=== PATIENT | male | born 1980 | race Asian ===

== ENCOUNTER 2017-02-08 16:20 | Emergency (ER) | payer OTHER ==
[~2017-02-08] VITALS: Ht 170.2 cm; Wt 73.9 kg
[2017-02-08 16:30] VITALS: BP 133/78
--- NOTE | 2017-02-08 17:25 | PHYS DOC ---
Past Medical History Past Medical History: Bipolar, Depression, Other Additional Past Medical Histor: chronic hip and knee pain, SEASONAL ALLERGIES Past Surgical History: Other Additional Past Surgical Histo: RIGHT HIP SURGERY Alcohol Use: Occasionally Drug Use: None Adult General Chief Complaint Chief Complaint: HEADACHE HPI HPI Patient is a 36 year old male with history of bipolar who presents today with 5 /10 right frontal throbbing headache that began 4 days ago after he fell off a chair he was standing on to fix blinds and hit his right forehead on a table. Patient denies any loss of consciousness. He states he is currently sensitive to light and feels tired. Patient denies any nausea vomiting. Review of Systems Review of Systems Constitutional: Denies fever or chills [] Eyes: Denies change in visual acuity, redness, or eye pain [] HENT: Denies nasal congestion or sore throat [] Respiratory: Denies cough or shortness of breath [] Cardiovascular: No additional information not addressed in HPI [] GI: Denies abdominal pain, nausea, vomiting, bloody stools or diarrhea [] : Denies dysuria or hematuria [] Musculoskeletal: Denies back pain or joint pain [] Integument: Denies rash or skin lesions [] Neurologic: Right forehead headache Endocrine: Denies polyuria or polydipsia [] Allergies Allergies Allergies Coded Allergies Type Severity Reaction Last Updated Verified No Known Drug Allergies 08/18/15 No Physical Exam Physical Exam Constitutional: Well developed, well nourished, no acute distress, non-toxic appearance. [] HENT: Normocephalic, atraumatic, bilateral external ears normal, oropharynx moist, no oral exudates, nose normal. [] Eyes: PERRLA, EOMI, conjunctiva normal, no discharge. [] Neck: Normal range of motion, no tenderness, supple, no stridor. [] Cardiovascular:Heart rate regular rhythm, no murmur [] Lungs & Thorax: Bilateral breath sounds clear to auscultation [] Abdomen: Bowel sounds normal, soft, no tenderness, no masses, no pulsatile masses. [] Skin: Warm, dry, no erythema, no rash. [] Back: No tenderness, no CVA tenderness. [] Extremities: No tenderness, no cyanosis, no clubbing, ROM intact, no edema. [] Neurologic: Alert and oriented X 3, normal motor function, normal sensory function, no focal deficits noted. Cranial nerves II through XII intact Psychologic: Affect normal, judgement normal, mood normal. [] Current Patient Data Vital Signs Vital Signs Date Time Temp Pulse Resp B/P (MAP) Pulse Ox O2 Delivery O2 Flow Rate FiO2 02/08/17 16:30 97.9 67 16 98 Room Air 97.9 EKG EKG [] Radiology/Procedures Radiology/Procedures [] Course & Med Decision Making Course & Med Decision Making Pertinent Labs and Imaging studies reviewed. (See chart for details) This is a 36-year-old male patient who presents today with a headache photosensitivity and feeling tired after falling and hitting his head on a table. There was no loss of consciousness. CT of the head was negative for any acute findings. Patient has a closed head injury with concussion symptoms. He was educated on signs and symptoms to return to the ED including worsening pain, uncontrolled nausea or vomiting, confusion, or any other concerning symptoms. Dragon Disclaimer Dragon Disclaimer This electronic medical record was generated, in whole or in part, using a voice recognition dictation system. Departure Departure Impression: Primary Impression: Fall from chair Additional Impressions: Closed head injury Concussion Disposition: HOME, SELF-CARE Condition: STABLE Referrals: UNKNOWN PCP NAME (PCP) Follow-up with your doctor in one week Patient Instructions: Concussion and Brain Injury Additional Instructions: You were seen for closed head injury with concussion symptoms. The symptoms are not unusual. The things you need to watch for include confusion, uncontrolled pain, uncontrolled nausea or vomiting, excessive sleepiness, come back to the ED if they occur. Take Tylenol for pain and follow-up with your own doctor in the next 7 days. Scripts Acetaminophen (TYLENOL) 325 Mg Tablet 1-2 TAB PO QID, #60 TAB 2 Refills Prov: KUMAR NG TRAFFIC ROUTING ENGINEER 02/08/17 Problem Qualifiers Primary Impression: Fall from chair Encounter type: initial encounter Qualified Codes: W07.XXXA - Fall from chair, initial encounter Additional Impressions: Closed head injury Encounter type: initial encounter Qualified Codes: S09.90XA - Unspecified injury of head, initial encounter Concussion Encounter type: initial encounter Loss of consciousness presence/duration: without LOC Qualified Codes: S06.0X0A - Concussion without loss of consciousness, initial encounter KUMAR NG TRAFFIC ROUTING ENGINEER Feb 08, 2017 17:25
--- NOTE | 2017-02-08 17:30 | RAD ---
Exam performed: CT scan of the head without contrast. Date of Service: 02/08/2017. Comparison: None available. Clinical History: Headache status post fall and hitting right side of the for chest pain and chest since. Technique: Helical acquisitions are obtained from the foramen magnum to the vertex without intravenous administration of contrast. Findings: The ventricles are midline without evidence of dilatation. Normal nielsen-white differentiation is maintained. There is no extra axial fluid collection, intraparenchymal hemorrhage or mass lesion. Occasional Punctate benign-appearing calcifications are seen bilaterally. The visualized portions of the orbits, paranasal sinuses and the mastoid air cells appear clear. The calvarium is intact. Impression: 1. No acute intracranial process detected. PQRS Compliance Statement: One or more of the following individualized dose reduction techniques were utilized for this examination: 1. Automated exposure control 2. Adjustment of the mA and/or kV according to patient size 3. Use of iterative reconstruction technique Electronically signed by: Minerva Singh MD (02/08/2017 5:27 PM)
[2017-02-08] MEDS ORDERED: ACET325T9 PO (18:06)
[2017-02-08] MEDS ORDERED: ACETAMINOPHEN 500 MG TABLET PO ONE (18:15)
== END 2017-02-08 18:14 | disposition home or self-care (01) ==
LOC: ER 16:20
DX: S06.0X0A Concussion without loss of consciousness, initial encounter (principal); F31.9 Bipolar disorder, unspecified; G89.29 Other chronic pain; W07.XXXA Fall from chair, initial encounter; Y93.89 Activity, other specified; Y99.8 Other external cause status; Y92.89 Other specified places as the place of occurrence of the external cause
CPT/HCPCS: 70450; 99284-25

== ENCOUNTER 2018-02-14 02:27 | Emergency (ER) | payer OTHER ==
[2018-02-14 03:14] LABS: POC GLUCOSE 136 mg/dL (70-99)
[2018-02-14] MEDS: ACETAMINOPHEN 325 MG TABLET. PO (03:21)
[2018-02-14 03:33] LABS: ADD MAN DIFF? NO
[2018-02-14 03:36] LABS: BASO # 0.1 x10^3/uL (0.0-0.2); BASO % 1 % (0-3); EOS # 0.3 x10^3/uL (0.0-0.7); EOS % 5 % (0-3); HEMATOCRIT 43.7 % (39.0-53.0); HEMOGLOBIN 15.7 g/dL (13.0-17.5); LYMPH # 2.7 x10^3/uL (1.0-4.8); LYMPH % 43 % (24-48); MEAN CORPUSCULAR HEMOGLOBIN 30 pg (25-35); MEAN CORPUSCULAR HGB CONC 36 g/dL (31-37); MEAN CORPUSCULAR VOLUME 84 fL (79-100); MONO # 0.5 x10^3/uL (0.0-1.1); MONO % 7 % (0-9); NEUT # 2.8 x10^3uL (1.8-7.7); NEUT % 44 % (31-73); PLATELET COUNT 189 x10^3/uL (140-400); RED BLOOD COUNT 5.21 x10^6/uL (4.30-5.70); RED CELL DISTRIBUTION WIDTH 13.2 % (11.5-14.5); WHITE BLOOD COUNT 6.4 x10^3/uL (4.0-11.0)
[2018-02-14 03:43] LABS: ANION GAP 7 (6-14); BLOOD UREA NITROGEN 16 mg/dL (8-26); CALCIUM 8.2 mg/dL (8.5-10.1); CARBON DIOXIDE 27 mmol/L (21-32); CHLORIDE 105 mmol/L (98-107); CREATININE 0.9 mg/dL (0.7-1.3); GLUCOSE 160 mg/dL (70-99); POTASSIUM 3.6 mmol/L (3.5-5.1); SODIUM 139 mmol/L (136-145)
[2018-02-14 03:51] LABS: TROPONINI < 0.017 ng/mL (0.000-0.055)
== END 2018-02-14 04:26 | disposition home or self-care (01) ==
LOC: ER 02:27
DX: R51 Headache (principal); R07.2 Precordial pain; G89.29 Other chronic pain; G47.53 Recurrent isolated sleep paralysis; F51.9 Sleep disorder not due to a substance or known physiological condition, unspecified; F31.9 Bipolar disorder, unspecified
CPT/HCPCS: 36415; 71046; 80048; 82962; 84484; 85025; 93005; 99285-25

== ENCOUNTER 2018-06-08 23:46 | Emergency (ER) | payer OTHER ==
[~2018-06-08] VITALS: Ht 170.2 cm; Wt 77.6 kg
[~2018-06-08 23:46] MED LIST: ACET325T9 PO; ASPI-630 PO
[2018-06-09 01:45] VITALS: BP 128/74
--- NOTE | 2018-06-09 05:28 | PHYS DOC ---
Past Medical History Past Medical History: No Pertinent History Additional Past Medical Histor: chronic hip and knee pain, SEASONAL ALLERGIES Past Surgical History: Other Additional Past Surgical Histo: Left labrum tear repair Alcohol Use: Occasionally Drug Use: None Adult General Chief Complaint Chief Complaint: MULTIPLE COMPLAINTS [facility] HPI Patient is a 37 year old male who presents with multiple medical complaints. Patient reports intermittent congestion, rhinorrhea, skin swelling, cough, occasional fever and leg pain for the past several weeks. Patient states he feels as though his body is warm and skin is warm and times but has not had a fever. Temperature earlier was 98.6. No history of asthma, no wheezing, no chest pain and chest tightness or shortness of breath. She has not been evaluated for these symptoms prior to today's ED visit.[] Review of Systems Review of Systems ROS as per HPI All other systems were reviewed and found to be within normal limits, except as documented in this note. Allergies Allergies Allergies Coded Allergies Type Severity Reaction Last Updated Verified No Known Drug Allergies 08/18/15 No Physical Exam Physical Exam Constitutional: Well developed, well nourished, no acute distress, non-toxic appearance. [] HENT: Normocephalic, atraumatic, bilateral external ears normal, oropharynx moist, no oral exudates, nose normal. [] Eyes: PERRLA, EOMI, conjunctiva normal, no discharge. [] Neck: Normal range of motion, no tenderness, supple, no stridor. [] Cardiovascular:Heart rate regular rhythm, no murmur [] Lungs & Thorax: Bilateral breath sounds clear to auscultation [] Abdomen: Bowel sounds normal, soft, no tenderness. [] Skin: Warm, dry, no erythema, no rash. [] Back: No tenderness. [] Extremities: No tenderness. [] Neurologic: Alert and oriented X 3, normal motor function, normal sensory function, no focal deficits noted. [] Psychologic: Affect normal, judgement normal, mood normal. [] Current Patient Data Vital Signs Vital Signs Date Time Temp Pulse Resp B/P (MAP) Pulse Ox O2 Delivery O2 Flow Rate FiO2 06/09/18 01:45 98.4 84 18 128/74 (92) 97 Room Air 98.4 EKG EKG [] Radiology/Procedures Radiology/Procedures [] Course & Med Decision Making Course & Med Decision Making Pertinent Labs and Imaging studies reviewed. (See chart for details) [Benign physical exam, stable vital signs. Will defer further workup to the patient's primary care provider.] Dragon Disclaimer Dragon Disclaimer This electronic medical record was generated, in whole or in part, using a voice recognition dictation system. Departure Departure Impression: Primary Impression: Encounter for medical screening examination Disposition: HOME, SELF-CARE Condition: GOOD Patient Instructions: Medical Screening Exam Additional Instructions: Please follow up with a local primary care physician early next week for furher evaluation. NISHA RUIZ DO Jun 09, 2018 05:28
== END 2018-06-09 03:21 | disposition home or self-care (01) ==
LOC: ER 23:46
DX: Z13.89 Encounter for screening for other disorder (principal); R05 Cough; J34.89 Other specified disorders of nose and nasal sinuses; R50.9 Fever, unspecified; R22.9 Localized swelling, mass and lump, unspecified; G89.29 Other chronic pain; M79.609 Pain in unspecified limb
CPT/HCPCS: 99281

== ENCOUNTER 2018-11-03 00:33 | Emergency (ER) | payer OTHER ==
[~2018-11-03] VITALS: Ht 165.1 cm; Wt 77.6 kg
[2018-11-03 01:53] LABS: BILIRUBIN,URINE NEGATIVE (NEG); CLARITY,URINE CLEAR; COLOR,URINE YELLOW; NITRITE,URINE NEGATIVE (NEG); PROTEIN,URINE 30 mg/dL (NEG-TRACE); UROBILINOGEN,URINE 0.2 mg/dL (0.2 mg/dL)
[2018-11-03 02:00] LABS: BACTERIA,URINE 0 /HPF (0-FEW); BARBITURATES NEG (NEG); BENZODIAZEPINES NEG (NEG); CANNABINOIDS NEG (NEG); COCAINE NEG (NEG); METHADONE NEG (NEG); OPIATES NEG (NEG); PHENCYCLIDINE NEG (NEG); RBC,URINE 0 /HPF (0-2); WBC,URINE OCC /HPF (0-4)
[2018-11-03] MEDS ORDERED: KETOROLAC 15 MG/ML VIAL. IV ONE (02:00)
[2018-11-03] MEDS ORDERED: IV NORMAL SALINE 1000ML BAG 1,000 ML IV ONE ×2 (02:00)
[2018-11-03] MEDS ORDERED: FAMOTIDINE 20 MG/2 ML VIAL IVP ONE (02:00)
[2018-11-03 02:01] LABS: HYALINE CASTS, URINE FEW /HPF; SQUAMOUS EPITHELIAL CELL,UR OCC /LPF
[2018-11-03 02:03] LABS: AMPHETAMINE/METHAMPHETAMINE NEG (NEG)
--- NOTE | 2018-11-03 02:03 | PHYS DOC ---
Past Medical History Past Medical History: No Pertinent History Additional Past Medical Histor: chronic hip and knee pain, SEASONAL ALLERGIES Past Surgical History: Other Additional Past Surgical Histo: Left labrum tear repair Alcohol Use: Occasionally Drug Use: None Adult General Chief Complaint Chief Complaint: ABDOMINAL PAIN HPI HPI 38-year-old male presents with report of diffuse abdominal pain which patient describes as sharp and burning in nature which started last night. Patient did initially report some associated nausea which is now resolved. Patient also reports he had a "syncopal episode ". Reports also became very sweaty and lightheaded and ended up passing out. Denies chest pain. Denies known sick contacts. Denies trauma. Denies fever or chills. Patient also reports history of psychiatric illness. Reports some increased anxiety. Patient reports he tried doing some sit-ups, but made symptoms worse. Review of Systems Review of Systems Constitutional: Denies fever or chills [] Eyes: Denies change in visual acuity, redness, or eye pain [] HENT: Denies nasal congestion or sore throat [] Respiratory: Denies cough or shortness of breath [] Cardiovascular: Denies chest pain or palpitations GI: Reports abdominal pain and nausea; denies vomiting or diarrhea [] : Denies dysuria or hematuria [] Musculoskeletal: Denies back pain or joint pain [] Integument: Denies rash or skin lesions [] Neurologic: Denies headache, focal weakness or sensory changes [] Psychiatric: Reports anxiety Complete systems were reviewed and found to be within normal limits, except as documented in this note. Current Medications Current Medications Current Medications Medications (Trade) Dose Ordered Sig/Willy Start Time Stop Time Status Last Admin Dose Admin Famotidine (Pepcid Vial) 20 mg 1X ONCE 11/03/18 02:00 11/03/18 02:01 DC 11/03/18 02:04 20 MG Info (CONTRAST GIVEN -- Rx MONITORING) 1 each PRN DAILY PRN 11/03/18 02:30 11/03/18 03:36 DC Iohexol (Omnipaque 300 Mg/ml) 60 ml 1X ONCE 11/03/18 03:00 11/03/18 03:01 DC 11/03/18 02:39 60 ML Ketorolac Tromethamine (Toradol 15mg Vial) 15 mg 1X ONCE 11/03/18 02:00 11/03/18 02:01 DC 11/03/18 02:04 15 MG Sodium Chloride 1,000 ml @ 1,000 mls/hr 1X ONCE 11/03/18 02:00 11/03/18 02:59 DC Allergies Allergies Allergies Coded Allergies Type Severity Reaction Last Updated Verified No Known Drug Allergies 08/18/15 No Physical Exam Physical Exam Constitutional: Well developed, well nourished, no acute distress, non-toxic appearance. [] HENT: Normocephalic, atraumatic, oropharynx moist Eyes: Conjunctiva normal, no discharge. [] Neck: Normal range of motion, no tenderness, supple Cardiovascular: Heart rate regular rhythm, no murmur [] Lungs & Thorax: Bilateral breath sounds clear to auscultation [] Abdomen: Soft, no tenderness Skin: Warm, dry, no erythema, no rash. [] Back: No tenderness, no CVA tenderness. [] Extremities: No tenderness, ROM intact, no edema. [] Neurologic: Alert and oriented X 3, normal motor function, normal sensory function, no focal deficits noted. [] Psychologic: Affect anxious, judgement normal Current Patient Data Vital Signs Vital Signs Date Time Temp Pulse Resp B/P (MAP) Pulse Ox O2 Delivery O2 Flow Rate FiO2 11/03/18 03:13 73 16 92/55 (67) 99 Room Air 11/03/18 00:46 97.7 97.7 Lab Values Laboratory Tests Test 11/03/18 00:30 11/03/18 01:54 Urine Collection Type Unknown Urine Color Yellow Urine Clarity Clear Urine pH 6.0 Urine Specific [place] 1.020 Urine Protein 30 mg/dL (NEG-TRACE) Urine Glucose (UA) Negative mg/dL (NEG) Urine Ketones (Stick) Negative mg/dL (NEG) Urine Blood Negative (NEG) Urine Nitrite Negative (NEG) Urine Bilirubin Negative (NEG) Urine Urobilinogen Dipstick 0.2 mg/dL (0.2 mg/dL) Urine Leukocyte Esterase Negative (NEG) Urine RBC 0 /HPF (0-2) Urine WBC Occ /HPF (0-4) Urine Squamous Epithelial Cells Occ /LPF Urine Bacteria 0 /HPF (0-FEW) Urine Hyaline Casts Few /HPF Urine Mucus Slight /LPF Urine Opiates Screen Neg (NEG) Urine Methadone Screen Neg (NEG) Urine Barbiturates Neg (NEG) Urine Phencyclidine Screen Neg (NEG) Urine Amphetamine/Methamphetamine Neg (NEG) Urine Benzodiazepines Screen Neg (NEG) Urine Cocaine Screen Neg (NEG) Urine Cannabinoids Screen Neg (NEG) Urine Ethyl Alcohol Neg (NEG) White Blood Count 10.5 x10^3/uL (4.0-11.0) Red Blood Count 5.41 x10^6/uL (4.30-5.70) Hemoglobin 15.4 g/dL (13.0-17.5) Hematocrit 45.7 % (39.0-53.0) Mean Corpuscular Volume 85 fL (79-100) Mean Corpuscular Hemoglobin 29 pg (25-35) Mean Corpuscular Hemoglobin Concent 34 g/dL (31-37) Red Cell Distribution Width 13.3 % (11.5-14.5) Platelet Count 213 x10^3/uL (140-400) Neutrophils (%) (Auto) 74 % (31-73) H Lymphocytes (%) (Auto) 15 % (24-48) L Monocytes (%) (Auto) 9 % (0-9) Eosinophils (%) (Auto) 2 % (0-3) Basophils (%) (Auto) 0 % (0-3) Neutrophils # (Auto) 7.8 x10^3uL (1.8-7.7) H Lymphocytes # (Auto) 1.6 x10^3/uL (1.0-4.8) Monocytes # (Auto) 0.9 x10^3/uL (0.0-1.1) Eosinophils # (Auto) 0.2 x10^3/uL (0.0-0.7) Basophils # (Auto) 0.0 x10^3/uL (0.0-0.2) Sodium Level 142 mmol/L (136-145) Potassium Level 4.0 mmol/L (3.5-5.1) Chloride Level 104 mmol/L (98-107) Carbon Dioxide Level 26 mmol/L (21-32) Anion Gap 12 (6-14) Blood Urea Nitrogen 23 mg/dL (8-26) Creatinine 1.4 mg/dL (0.7-1.3) H Estimated GFR (Cockcroft-Gault) 57.3 BUN/Creatinine Ratio 16 (6-20) Glucose Level 92 mg/dL (70-99) Calcium Level 8.7 mg/dL (8.5-10.1) Magnesium Level 2.1 mg/dL (1.8-2.4) Total Bilirubin 0.4 mg/dL (0.2-1.0) Aspartate Amino Transferase (AST) 18 U/L (15-37) Alanine Aminotransferase (ALT) 31 U/L (16-63) Alkaline Phosphatase 68 U/L (46-116) Creatine Kinase 152 U/L (39-308) Creatine Kinase MB (Mass) 0.6 ng/mL (0.0-3.6) Creatine Kinase MB Relative Index 0.4 % (0-4) Troponin I Quantitative < 0.017 ng/mL (0.000-0.055) Total Protein 7.0 g/dL (6.4-8.2) Albumin 3.9 g/dL (3.4-5.0) Albumin/Globulin Ratio 1.3 (1.0-1.7) Lipase 178 U/L (73-393) Laboratory Tests 11/03/18 01:54 Laboratory Tests 11/03/18 01:54 EKG EKG @0136 NSR at 62bpm, NO ST elevation, Q wave III Radiology/Procedures Radiology/Procedures PROCEDURE: CT ABD PELV W/ IV CONTRST ONLY EXAM: CT Abdomen and Pelvis with IV contrast CLINICAL HISTORY: diffuse abdominal pain COMPARISON: none TECHNIQUE: Helical CT of the abdomen and pelvis was performed following the administration of intravenous contrast. Axial, coronal and sagittal reformatted images were generated. PQRS compliance statement - One or more of the following individualized dose reduction techniques were utilized for this study: 1. Automated exposure control 2. Adjustment of the mA and/or kV according to patient size 3. Use of iterative reconstruction technique FINDINGS: Lower chest: Clear Abdomen and Pelvis: No focal liver lesion. Gallbladder is normal. No biliary ductal dilatation. Spleen is unremarkable. Adrenal glands and pancreas are unremarkable. Symmetric nephrograms. 4 mm left interpolar obstructing calculus. No focal renal lesion. No hydronephrosis. Appendix is normal. No small or large bowel dilatation. Moderate colonic stool content. A few colonic diverticula are seen. No evidence for acute diverticulitis. No abdominal or pelvic ascites. No abdominal or pelvic lymphadenopathy. Aorta is normal in caliber. Tiny fat-containing periumbilical hernia. Bones: No definite aggressive osseous lesion is seen. IMPRESSION: 1. No evidence for bowel obstruction. 2. Moderate colonic stool content is seen. This can be correlated with constipation. 3. 4 mm nonobstructing left interpolar renal calculus. Electronically signed by: Alejo Stauffer MD (11/03/2018 2:58 AM) [facility] Course & Med Decision Making Course & Med Decision Making Pertinent Labs and Imaging studies reviewed. (See chart for details) Patient presents with abdominal discomfort and reported syncopal episode. Patient neurologically intact. Appears anxious. Labs obtained and posted to chart. IVF hydration given. CT abd/pelvis without acute process, however some increased stool content consistent for constipation. Patient stable for discharge home with outpatient follow-up with PCP. Discussed findings and plan with patient, who acknowledges understanding and agreement. Dragon Disclaimer Dragon Disclaimer This electronic medical record was generated, in whole or in part, using a voice recognition dictation system. Departure Departure Impression: Primary Impression: Syncope Additional Impressions: Abdominal pain Constipation Disposition: HOME, SELF-CARE Condition: STABLE Referrals: UNKNOWN PCP NAME (PCP) Patient Instructions: Abdominal Pain (Nonspecific), Constipation, Adult, Easy- to-Read, Syncope, [id number] Scripts Hyoscyamine Sulfate (LEVSIN-SL) 0.125 Mg Tab.subl 1 TAB SL PRN Q4HRS PRN for PAIN, #14 TAB 0 Refills Prov: WAYNE RAI DO 11/03/18 Famotidine (PEPCID) 20 Mg Tablet 20 MG PO BID, #14 TAB Prov: WAYNE RAI DO 11/03/18 Sennosides/Docusate Sodium (Colace 2-in-1 Tablet) 1 Each Tablet 1 EACH PO QHS, #14 TAB Prov: WAYNE RAI DO 11/03/18 Problem Qualifiers Primary Impression: Syncope Syncope type: unspecified Qualified Codes: R55 - Syncope and collapse Additional Impressions: Abdominal pain Abdominal location: generalized Qualified Codes: R10.84 - Generalized abdominal pain Constipation Constipation type: unspecified constipation type Qualified Codes: K59.00 - Constipation, unspecified WAYNE RAI DO Nov 03, 2018 02:03
[2018-11-03 02:05] LABS: BASO % 0 % (0-3); EOS # 0.2 x10^3/uL (0.0-0.7); EOS % 2 % (0-3); HEMATOCRIT 45.7 % (39.0-53.0); HEMOGLOBIN 15.4 g/dL (13.0-17.5); LYMPH # 1.6 x10^3/uL (1.0-4.8); LYMPH % 15 % (24-48); MEAN CORPUSCULAR HEMOGLOBIN 29 pg (25-35); MEAN CORPUSCULAR HGB CONC 34 g/dL (31-37); MEAN CORPUSCULAR VOLUME 85 fL (79-100); MONO # 0.9 x10^3/uL (0.0-1.1); MONO % 9 % (0-9); NEUT # 7.8 x10^3uL (1.8-7.7); NEUT % 74 % (31-73); PLATELET COUNT 213 x10^3/uL (140-400); RED BLOOD COUNT 5.41 x10^6/uL (4.30-5.70); RED CELL DISTRIBUTION WIDTH 13.3 % (11.5-14.5); WHITE BLOOD COUNT 10.5 x10^3/uL (4.0-11.0)
[2018-11-03 02:14] LABS: CALCIUM 8.7 mg/dL (8.5-10.1); CREATININE 1.4 mg/dL (0.7-1.3); GFR 57.3
[2018-11-03 02:20] LABS: ALBUMIN 3.9 g/dL (3.4-5.0); ALBUMIN/GLOBULIN RATIO 1.3 (1.0-1.7); MAGNESIUM 2.1 mg/dL (1.8-2.4); TOTAL BILIRUBIN 0.4 mg/dL (0.2-1.0)
[2018-11-03] MEDS ORDERED: CONTRAST GIVEN. MC PRN (02:30)
[2018-11-03] MEDS ORDERED: IOHEXOL 300 MG/ML 100ML VIAL. IV ONE (03:00)
--- NOTE | 2018-11-03 03:01 | RAD ---
EXAM: CT Abdomen and Pelvis with IV contrast CLINICAL HISTORY: diffuse abdominal pain COMPARISON: none TECHNIQUE: Helical CT of the abdomen and pelvis was performed following the administration of intravenous contrast. Axial, coronal and sagittal reformatted images were generated. PQRS compliance statement - One or more of the following individualized dose reduction techniques were utilized for this study: 1. Automated exposure control 2. Adjustment of the mA and/or kV according to patient size 3. Use of iterative reconstruction technique FINDINGS: Lower chest: Clear Abdomen and Pelvis: No focal liver lesion. Gallbladder is normal. No biliary ductal dilatation. Spleen is unremarkable. Adrenal glands and pancreas are unremarkable. Symmetric nephrograms. 4 mm left interpolar obstructing calculus. No focal renal lesion. No hydronephrosis. Appendix is normal. No small or large bowel dilatation. Moderate colonic stool content. A few colonic diverticula are seen. No evidence for acute diverticulitis. No abdominal or pelvic ascites. No abdominal or pelvic lymphadenopathy. Aorta is normal in caliber. Tiny fat-containing periumbilical hernia. Bones: No definite aggressive osseous lesion is seen. IMPRESSION: 1. No evidence for bowel obstruction. 2. Moderate colonic stool content is seen. This can be correlated with constipation. 3. 4 mm nonobstructing left interpolar renal calculus. Electronically signed by: Alejo Stauffer MD (11/03/2018 2:58 AM) [facility]
[2018-11-03 03:13] VITALS: BP 92/55
[2018-11-03] MEDS ORDERED: FAMO-63 PO (03:22)
[2018-11-03] MEDS ORDERED: SENN-121 PO (03:22)
[2018-11-03] MEDS ORDERED: HYOS0.1265 SL (03:33)
--- NOTE | 2018-11-03 10:51 | EKG ---
[facility] [address] [place] [address] Test Date: 2018-11-03 Test Time: 01:36:44 Pat Name: ANNIA HOWARD Department: Room: Gender: M Investigator Narcotics: : [id number] Requested By: WAYNE RAI Order Number: [id number] Reading MD: Yasir Kasper MD Measurements Intervals [place] Rate: 62 P: 40 MD: 156 QRS: 51 QRSD: 92 T: 32 QT: 384 QTc: 392 Interpretive Statements SINUS RHYTHM Electronically Signed On 11-06-2018 10:16:23 BUILDING MOVER by Yasir Kasper MD
== END 2018-11-03 03:29 | disposition home or self-care (01) ==
LOC: ER 00:33
DX: R55 Syncope and collapse (principal); K59.00 Constipation, unspecified; F41.9 Anxiety disorder, unspecified
CPT/HCPCS: 36415; 74177; 80053; 80307; 81001; 82553; 83690; 83735; 84484; 85025; 93005; 96361; 96374; 96375; 99284; J1885; J3490; J7030; Q9967

== ENCOUNTER 2018-11-17 20:55 | Emergency (ER) | payer OTHER ==
[~2018-11-17] VITALS: Ht 170.2 cm; Wt 72.6 kg
[~2018-11-17 20:55] MED LIST changes: +FAMO-63 PO; +HYOS0.1265 SL; +SENN-121 PO
--- NOTE | 2018-11-17 22:25 | PHYS DOC ---
Past Medical History Past Medical History: Anxiety, Bipolar, Other Additional Past Medical Histor: chronic hip and knee pain, SEASONAL ALLERGIES Past Surgical History: Other Additional Past Surgical Histo: Left labrum tear repair Alcohol Use: Occasionally Drug Use: None Adult General Chief Complaint Chief Complaint: DIZZY/LIGHT HEADED HPI HPI Patient is a 38 year old male who presents with dizziness and lightheadedness. This happened today. There is been no chest pain or palpitations. Patient reports that he is been unable to sleep for the past week. He was able to get some sleep between 5:00 and 12:30 PM today. Lightheaded with standing. No nausea or vomiting. He notes has a headache. No photophobia. No worst headache of life. No fever. No neck stiffness. No nausea, no vomiting. Nothing seems to make the symptoms better or worse.[] Review of Systems Review of Systems Constitutional: Denies fever or chills [] Eyes: Denies change in visual acuity, redness, or eye pain [] HENT: Denies nasal congestion or sore throat [] Respiratory: Denies cough or shortness of breath [] Cardiovascular: No chest pain or palpitations[] GI: Denies abdominal pain, nausea, vomiting, bloody stools or diarrhea [] : Denies dysuria or hematuria [] Musculoskeletal: Denies back pain or joint pain [] Integument: Denies rash or skin lesions [] Neurologic: Denies headache, focal weakness or sensory changes [] Endocrine: Denies polyuria or polydipsia [] All other systems were reviewed and found to be within normal limits, except as documented in this note. Current Medications Current Medications Current Medications Medications (Trade) Dose Ordered Sig/Willy Start Time Stop Time Status Last Admin Dose Admin Acetaminophen (Tylenol) 500 mg 1X ONCE 11/17/18 23:45 11/17/18 23:46 DC 11/18/18 00:15 500 MG Metoclopramide HCl (Reglan Vial) 10 mg 1X ONCE 11/17/18 23:00 11/17/18 23:01 DC 11/17/18 23:45 10 MG Sodium Chloride 1,000 ml @ 1,000 mls/hr 1X ONCE 11/17/18 23:00 11/17/18 23:59 DC 11/17/18 23:46 1,000 MLS/HR Allergies Allergies Allergies Coded Allergies Type Severity Reaction Last Updated Verified No Known Drug Allergies 08/18/15 No Physical Exam Physical Exam Constitutional: Well developed, well nourished, no acute distress, non-toxic appearance. [] HENT: Normocephalic, atraumatic, bilateral external ears normal, oropharynx moist, no oral exudates, nose normal. [] Eyes: PERRLA, EOMI, conjunctiva normal, no discharge. [] Neck: Normal range of motion, no tenderness, supple, no stridor. [] Cardiovascular:Heart rate regular rhythm, no murmur [] Lungs & Thorax: Bilateral breath sounds clear to auscultation [] Abdomen: Bowel sounds normal, soft, no tenderness, no masses, no pulsatile masses. [] Skin: Warm, dry, no erythema, no rash. [] Back: No tenderness, no CVA tenderness. [] Extremities: No tenderness, no cyanosis, no clubbing, ROM intact, no edema. [] Neurologic: Alert and oriented X 3, normal motor function, normal sensory function, no focal deficits noted. [] Psychologic: Affect normal, judgement normal, mood normal. [] Current Patient Data Vital Signs Vital Signs Date Time Temp Pulse Resp B/P (MAP) Pulse Ox O2 Delivery O2 Flow Rate FiO2 11/17/18 22:14 98.4 78 18 122/76 (91) Room Air 98.4 Lab Values Laboratory Tests Test 11/17/18 23:30 White Blood Count 6.6 x10^3/uL (4.0-11.0) Red Blood Count 5.64 x10^6/uL (4.30-5.70) Hemoglobin 15.8 g/dL (13.0-17.5) Hematocrit 47.0 % (39.0-53.0) Mean Corpuscular Volume 83 fL (79-100) Mean Corpuscular Hemoglobin 28 pg (25-35) Mean Corpuscular Hemoglobin Concent 34 g/dL (31-37) Red Cell Distribution Width 13.5 % (11.5-14.5) Platelet Count 210 x10^3/uL (140-400) Neutrophils (%) (Auto) 58 % (31-73) Lymphocytes (%) (Auto) 32 % (24-48) Monocytes (%) (Auto) 7 % (0-9) Eosinophils (%) (Auto) 3 % (0-3) Basophils (%) (Auto) 1 % (0-3) Neutrophils # (Auto) 3.9 x10^3uL (1.8-7.7) Lymphocytes # (Auto) 2.1 x10^3/uL (1.0-4.8) Monocytes # (Auto) 0.4 x10^3/uL (0.0-1.1) Eosinophils # (Auto) 0.2 x10^3/uL (0.0-0.7) Basophils # (Auto) 0.0 x10^3/uL (0.0-0.2) Prothrombin Time 12.9 SEC (11.7-14.0) Prothrombin Time INR 1.0 (0.8-1.1) Urine Collection Type Unknown Urine Color Yellow Urine Clarity Clear Urine pH 6.5 Urine Specific Helen 1.010 Urine Protein Negative mg/dL (NEG-TRACE) Urine Glucose (UA) Negative mg/dL (NEG) Urine Ketones (Stick) Negative mg/dL (NEG) Urine Blood Negative (NEG) Urine Nitrite Negative (NEG) Urine Bilirubin Negative (NEG) Urine Urobilinogen Dipstick 0.2 mg/dL (0.2 mg/dL) Urine Leukocyte Esterase Negative (NEG) Urine RBC 0 /HPF (0-2) Urine WBC 0 /HPF (0-4) Urine Squamous Epithelial Cells None /LPF Urine Bacteria 0 /HPF (0-FEW) Sodium Level 141 mmol/L (136-145) Potassium Level 3.8 mmol/L (3.5-5.1) Chloride Level 102 mmol/L (98-107) Carbon Dioxide Level 28 mmol/L (21-32) Anion Gap 11 (6-14) Blood Urea Nitrogen 17 mg/dL (8-26) Creatinine 1.2 mg/dL (0.7-1.3) Estimated GFR (Cockcroft-Gault) 68.5 BUN/Creatinine Ratio 14 (6-20) Glucose Level 95 mg/dL (70-99) Calcium Level 9.3 mg/dL (8.5-10.1) Magnesium Level 2.3 mg/dL (1.8-2.4) Total Bilirubin 0.7 mg/dL (0.2-1.0) Aspartate Amino Transferase (AST) 21 U/L (15-37) Alanine Aminotransferase (ALT) 27 U/L (16-63) Alkaline Phosphatase 72 U/L (46-116) Troponin I Quantitative < 0.017 ng/mL (0.000-0.055) VS-Grn-G-Type Natriuretic Peptide 9 pg/mL (0-124) Total Protein 8.3 g/dL (6.4-8.2) H Albumin 4.3 g/dL (3.4-5.0) Albumin/Globulin Ratio 1.1 (1.0-1.7) Thyroid Stimulating Hormone (TSH) 1.362 uIU/mL (0.358-3.74) Urine Opiates Screen Neg (NEG) Urine Methadone Screen Neg (NEG) Urine Barbiturates Neg (NEG) Urine Phencyclidine Screen Neg (NEG) Urine Amphetamine/Methamphetamine Neg (NEG) Urine Benzodiazepines Screen Neg (NEG) Urine Cocaine Screen Neg (NEG) Urine Cannabinoids Screen Neg (NEG) Urine Ethyl Alcohol Neg (NEG) Laboratory Tests 11/17/18 23:30 Laboratory Tests 11/17/18 23:30 EKG EKG EKG shows a normal sinus rhythm, rate of 67 bpm, normal axis, normal QTC, no ST elevations. Interpreted [place] me at [id number][] Radiology/Procedures Radiology/Procedures CT head without contrast: Reason for examination: Headaches and weakness with dizziness. Axial images were obtained to the brain. No contrast was administered. Exposure: One or more of the following individualized dose reduction techniques were utilized for this examination: 1. Automated exposure control 2. Adjustment of the mA and/or kV according to patient size 3. Use of iterative reconstruction technique. Ventricular systems are symmetric and not dilated. No midline shift is seen. There is no evidence of intracranial hemorrhage, infarct, mass or edema. There are a few small nonspecific calcifications present in the brain. No abnormalities are seen at the orbits. There appears to be fluid levels or mucosal disease posteriorly in the right maxillary antrum. The remaining paranasal sinuses and mastoid air cells are clear. No acute abnormality seen in the skull. IMPRESSION: Mucosal disease/fluid in the posterior right maxillary antrum. No acute intracranial abnormality seen. A few small nonspecific calcifications in the brain which are stable. Chest x-ray shows no infiltrate, no effusion, no pneumothorax[] Course & Med Decision Making Course & Med Decision Making Pertinent Labs and Imaging studies reviewed. (See chart for details) ED course: Patient arrived, was placed in bed, and tolerated exam well. Patient was transported to and from [place] with any complications. Patient was discharged in improved condition after discussion of lab and imaging findings. Medical decision making: There is no evidence of significant electrolyte abnormality, no intracranial mass or bleed, no evidence of an acute coronary syndrome, does not appear to be manic phase.[] Dragon Disclaimer Dragon Disclaimer This electronic medical record was generated, in whole or in part, using a voice recognition dictation system. Departure Departure Impression: Primary Impression: Insomnia Additional Impression: Lightheadedness Disposition: 01 HOME, SELF-CARE Condition: IMPROVED Referrals: UNKNOWN PCP NAME (PCP) Patient Instructions: Dizziness, Insomnia Additional Instructions: Follow-up with your regular doctor in 2 days. Avoid caffeine, sugar, and chocolate. Return to the ER if worsening dizziness or any other concerns. Problem Qualifiers Primary Impression: Insomnia Insomnia type: unspecified Qualified Codes: G47.00 - Insomnia, unspecified ARNOLD RIGGINS DO Nov 17, 2018 22:25
[2018-11-17] MEDS ORDERED: METOCLOPRAMIDE HCL 10 MG/2 ML VIAL. IV ONE (23:00)
[2018-11-17] MEDS ORDERED: IV NORMAL SALINE 1000ML BAG 1,000 ML IV ONE (23:00)
[2018-11-17 23:40] LABS: BASO % 1 % (0-3); EOS # 0.2 x10^3/uL (0.0-0.7); EOS % 3 % (0-3); HEMOGLOBIN 15.8 g/dL (13.0-17.5); LYMPH # 2.1 x10^3/uL (1.0-4.8); LYMPH % 32 % (24-48); MEAN CORPUSCULAR HEMOGLOBIN 28 pg (25-35); MEAN CORPUSCULAR HGB CONC 34 g/dL (31-37); MEAN CORPUSCULAR VOLUME 83 fL (79-100); MONO # 0.4 x10^3/uL (0.0-1.1); MONO % 7 % (0-9); NEUT # 3.9 x10^3uL (1.8-7.7); NEUT % 58 % (31-73); PLATELET COUNT 210 x10^3/uL (140-400); RED BLOOD COUNT 5.64 x10^6/uL (4.30-5.70); RED CELL DISTRIBUTION WIDTH 13.5 % (11.5-14.5); WHITE BLOOD COUNT 6.6 x10^3/uL (4.0-11.0)
[2018-11-17 23:42] LABS: BILIRUBIN,URINE NEGATIVE (NEG); CLARITY,URINE CLEAR; COLOR,URINE YELLOW; NITRITE,URINE NEGATIVE (NEG); PH,URINE 6.5; PROTEIN,URINE NEGATIVE (NEG-TRACE); UROBILINOGEN,URINE 0.2 mg/dL (0.2 mg/dL)
[2018-11-17] MEDS ORDERED: ACETAMINOPHEN 500 MG TABLET PO ONE (23:45)
[2018-11-17 23:47] LABS: BACTERIA,URINE 0 /HPF (0-FEW); BARBITURATES NEG (NEG); BENZODIAZEPINES NEG (NEG); CANNABINOIDS NEG (NEG); COCAINE NEG (NEG); METHADONE NEG (NEG); OPIATES NEG (NEG); PHENCYCLIDINE NEG (NEG); RBC,URINE 0 /HPF (0-2); WBC,URINE 0 /HPF (0-4)
[2018-11-17 23:50] LABS: AMPHETAMINE/METHAMPHETAMINE NEG (NEG); PROTHROMBIN TIME PATIENT 12.9 SEC (11.7-14.0)
[2018-11-17 23:51] LABS: CALCIUM 9.3 mg/dL (8.5-10.1); CREATININE 1.2 mg/dL (0.7-1.3); GFR 68.5; POTASSIUM 3.8 mmol/L (3.5-5.1)
[2018-11-17 23:56] LABS: ALBUMIN 4.3 g/dL (3.4-5.0); ALBUMIN/GLOBULIN RATIO 1.1 (1.0-1.7); MAGNESIUM 2.3 mg/dL (1.8-2.4); TOTAL BILIRUBIN 0.7 mg/dL (0.2-1.0); TOTAL PROTEIN 8.3 g/dL (6.4-8.2)
[2018-11-18] VITALS: BP 136/72
--- NOTE | 2018-11-18 00:03 | RAD ---
CT head without contrast: Reason for examination: Headaches and weakness with dizziness. Axial images were obtained to the brain. No contrast was administered. Exposure: One or more of the following individualized dose reduction techniques were utilized for this examination: 1. Automated exposure control 2. Adjustment of the mA and/or kV according to patient size 3. Use of iterative reconstruction technique. Ventricular systems are symmetric and not dilated. No midline shift is seen. There is no evidence of intracranial hemorrhage, infarct, mass or edema. There are a few small nonspecific calcifications present in the brain. No abnormalities are seen at the orbits. There appears to be fluid levels or mucosal disease posteriorly in the right maxillary antrum. The remaining paranasal sinuses and mastoid air cells are clear. No acute abnormality seen in the skull. IMPRESSION: Mucosal disease/fluid in the posterior right maxillary antrum. No acute intracranial abnormality seen. A few small nonspecific calcifications in the brain which are stable. Electronically signed by: Radha Huddleston MD (11/18/2018 12:01 AM) [facility]
--- NOTE | 2018-11-18 08:13 | RAD ---
EXAM: CHEST 1 VIEW History: Dizziness COMPARISON: 02/14/2018 TECHNIQUE: Single portable radiograph of the chest FINDINGS: The cardiac silhouette is unremarkable. The lungs are clear bilaterally. The costophrenic sulci are clear and well demarcated. IMPRESSION: No radiographic evidence of an acute cardiopulmonary process. Electronically signed by: Elmer Kelly MD (11/18/2018 8:08 AM) [facility]
--- NOTE | 2018-11-18 14:11 | EKG ---
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
== END 2018-11-18 00:58 | disposition home or self-care (01) ==
LOC: ER 20:55
DX: R42 Dizziness and giddiness (principal); G47.00 Insomnia, unspecified; R51 Headache; F31.9 Bipolar disorder, unspecified; F41.9 Anxiety disorder, unspecified
CPT/HCPCS: 36415; 70450; 71045; 80053; 80307; 81001; 83735; 83880; 84443; 84484; 85025; 85610; 93005; 96361; 96374; 99284; J2765; J7030

== ENCOUNTER 2019-04-11 21:35 | Emergency (ER) | payer MEDICAID, OTHER ==
[~2019-04-11] VITALS: Ht 170.2 cm; Wt 69.4 kg
[2019-04-11 21:58] VITALS: BP 123/81
[2019-04-11 22:03] LABS: BILIRUBIN,URINE NEGATIVE (NEG); CLARITY,URINE CLEAR; COLOR,URINE YELLOW; NITRITE,URINE NEGATIVE (NEG); PH,URINE 5.5; PROTEIN,URINE NEGATIVE (NEG-TRACE); UROBILINOGEN,URINE 0.2 mg/dL (0.2 mg/dL)
[2019-04-11 22:11] LABS: BACTERIA,URINE 0 /HPF (0-FEW); RBC,URINE 0 /HPF (0-2); WBC,URINE 0 /HPF (0-4)
[2019-04-11] MEDS ORDERED: IV NORMAL SALINE 1000ML BAG 1,000 ML IV ONE (23:30)
[2019-04-11 23:35] LABS: BASO # 0.1 x10^3/uL (0.0-0.2); BASO % 1 % (0-3); EOS # 0.2 x10^3/uL (0.0-0.7); EOS % 3 % (0-3); HEMOGLOBIN 16.1 g/dL (13.0-17.5); LYMPH # 2.4 x10^3/uL (1.0-4.8); LYMPH % 34 % (24-48); MEAN CORPUSCULAR HEMOGLOBIN 29 pg (25-35); MEAN CORPUSCULAR HGB CONC 34 g/dL (31-37); MEAN CORPUSCULAR VOLUME 85 fL (79-100); MONO # 0.5 x10^3/uL (0.0-1.1); MONO % 7 % (0-9); NEUT # 3.9 x10^3/uL (1.8-7.7); NEUT % 56 % (31-73); PLATELET COUNT 165 x10^3/uL (140-400); RED BLOOD COUNT 5.53 x10^6/uL (4.30-5.70); RED CELL DISTRIBUTION WIDTH 13.2 % (11.5-14.5)
[2019-04-11 23:47] LABS: CREATININE 1.1 mg/dL (0.7-1.3); GFR 75.7; POTASSIUM 4.2 mmol/L (3.5-5.1)
[2019-04-11 23:52] LABS: ALBUMIN 4.2 g/dL (3.4-5.0); ALBUMIN/GLOBULIN RATIO 1.1 (1.0-1.7); TOTAL BILIRUBIN 0.5 mg/dL (0.2-1.0); TOTAL PROTEIN 7.9 g/dL (6.4-8.2)
[2019-04-12] MEDS ORDERED: CONTRAST GIVEN. MC PRN (00:15)
[2019-04-12] MEDS ORDERED: IOHEXOL 300 MG/ML 100ML VIAL. IV ONE (00:15)
--- NOTE | 2019-04-12 00:24 | PHYS DOC ---
Past Medical History Past Medical History: Depression Additional Past Medical Histor: chronic hip and knee pain, SEASONAL ALLERGIES (AFUA KENYON APRN) Past Surgical History: Other Additional Past Surgical Histo: Left labrum tear repair (AFUA KENYON APRN) Smoking: Cigarettes, Greater than 1 pack/day Alcohol Use: None Drug Use: None (AFUA KENYON APRN) Adult General Chief Complaint Chief Complaint: ABDOMINAL PAIN HPI HPI Patient is a 38 year old male who presents to the emergency department with complaints of diffuse abdominal pain and constipation for the last 20 days. Patient reports that he did have a small bowel movement this morning that only produced very small balls of stool. He denies any rectal bleeding. Patient denies any nausea, or vomiting. Really he rates his pain an 8 out of 10 on pain scale he denies any alleviating or exacerbating factors. He reports that he has been taking [id number] stool softeners with no relief of his symptoms. He states that he smokes over a pack of cigarettes each day. ROS Patient denies any fever, cough, shortness of breath, nausea, vomiting, back pain, dysuria, hematuria, or difficulty urinating. All other ROS is neg unless otherwise noted in HPI. (AFUA KENYON APRN) Review of Systems Review of Systems See Above (AFUA KENYON APRN) Current Medications Current Medications Current Medications Medications (Trade) Dose Ordered Sig/Willy Start Time Stop Time Status Last Admin Dose Admin Info (CONTRAST GIVEN -- Rx MONITORING) 1 each PRN DAILY PRN 04/12/19 00:15 04/12/19 02:39 DC Iohexol (Omnipaque 300 Mg/ml) 75 ml 1X ONCE 04/12/19 00:15 04/12/19 00:16 DC 04/12/19 00:37 75 ML Sodium Chloride 1,000 ml @ 1,000 mls/hr 1X ONCE 04/11/19 23:30 04/12/19 00:29 DC 04/11/19 23:59 1,000 MLS/HR (WAYNE RAI DO) Allergies Allergies Allergies Coded Allergies Type Severity Reaction Last Updated Verified No Known Drug Allergies 08/18/15 No (WAYNE RAI DO) Physical Exam Physical Exam See Above Constitutional: Well developed, well nourished, no acute distress, non-toxic appearance. [] HENT: Normocephalic, atraumatic, bilateral external ears normal, oropharynx moist, no oral exudates, nose normal. [] Eyes: PERRLA, conjunctiva normal, no discharge. [] Neck: Normal range of motion, no stridor. [] Cardiovascular:Heart rate regular rhythm, no murmur [] Lungs & Thorax: Bilateral breath sounds clear to auscultation [] Abdomen: Bowel sounds normal, soft, LUQ, LLQ tenderness to palpation, no guardin g, no rebound tenderness, no masses, no pulsatile masses. Rectal Exam: Normal tone, No mass, Positive control (Caroline KRAMER pv design and installation technician) Stool: Brown Skin: Warm, dry, no erythema, no rash. [] Extremities: No cyanosis, ROM intact, no edema. [] Neurologic: Alert and oriented X 3, no focal deficits noted. [] Psychologic: Affect normal, judgement normal, mood normal. [] (AFUA KENYON APRN) Current Patient Data Vital Signs Vital Signs Date Time Temp Pulse Resp B/P (MAP) Pulse Ox O2 Delivery O2 Flow Rate FiO2 04/11/19 21:58 97.5 77 16 123/81 (95) 99 Room Air 97.5 (RAI,WAYNE R DO) Lab Values Laboratory Tests Test 04/11/19 21:50 04/11/19 22:05 Urine Collection Type Unknown Urine Color Yellow Urine Clarity Clear Urine pH 5.5 Urine Specific [place] 1.010 Urine Protein Negative mg/dL (NEG-TRACE) Urine Glucose (UA) Negative mg/dL (NEG) Urine Ketones (Stick) Negative mg/dL (NEG) Urine Blood Negative (NEG) Urine Nitrite Negative (NEG) Urine Bilirubin Negative (NEG) Urine Urobilinogen Dipstick 0.2 mg/dL (0.2 mg/dL) Urine Leukocyte Esterase Negative (NEG) Urine RBC 0 /HPF (0-2) Urine WBC 0 /HPF (0-4) Urine Bacteria 0 /HPF (0-FEW) White Blood Count 7.0 x10^3/uL (4.0-11.0) Red Blood Count 5.53 x10^6/uL (4.30-5.70) Hemoglobin 16.1 g/dL (13.0-17.5) Hematocrit 47.0 % (39.0-53.0) Mean Corpuscular Volume 85 fL (79-100) Mean Corpuscular Hemoglobin 29 pg (25-35) Mean Corpuscular Hemoglobin Concent 34 g/dL (31-37) Red Cell Distribution Width 13.2 % (11.5-14.5) Platelet Count 165 x10^3/uL (140-400) Neutrophils (%) (Auto) 56 % (31-73) Lymphocytes (%) (Auto) 34 % (24-48) Monocytes (%) (Auto) 7 % (0-9) Eosinophils (%) (Auto) 3 % (0-3) Basophils (%) (Auto) 1 % (0-3) Neutrophils # (Auto) 3.9 x10^3/uL (1.8-7.7) Lymphocytes # (Auto) 2.4 x10^3/uL (1.0-4.8) Monocytes # (Auto) 0.5 x10^3/uL (0.0-1.1) Eosinophils # (Auto) 0.2 x10^3/uL (0.0-0.7) Basophils # (Auto) 0.1 x10^3/uL (0.0-0.2) Sodium Level 142 mmol/L (136-145) Potassium Level 4.2 mmol/L (3.5-5.1) Chloride Level 105 mmol/L (98-107) Carbon Dioxide Level 27 mmol/L (21-32) Anion Gap 10 (6-14) Blood Urea Nitrogen 20 mg/dL (8-26) Creatinine 1.1 mg/dL (0.7-1.3) Estimated GFR (Cockcroft-Gault) 75.7 BUN/Creatinine Ratio 18 (6-20) Glucose Level 80 mg/dL (70-99) Calcium Level 9.0 mg/dL (8.5-10.1) Total Bilirubin 0.5 mg/dL (0.2-1.0) Aspartate Amino Transferase (AST) 22 U/L (15-37) Alanine Aminotransferase (ALT) 39 U/L (16-63) Alkaline Phosphatase 76 U/L (46-116) Total Protein 7.9 g/dL (6.4-8.2) Albumin 4.2 g/dL (3.4-5.0) Albumin/Globulin Ratio 1.1 (1.0-1.7) Laboratory Tests 04/11/19 22:05 Laboratory Tests 04/11/19 22:05 (WAYNE RAI DO) EKG EKG [] (AFUA KENYON APRN) Radiology/Procedures Radiology/Procedures PROCEDURE: CT ABD PELV W/ IV CONTRST ONLY EXAM: CT ABDOMEN/PELVIS WITH CONTRAST. HISTORY: Abdominal pain. Constipation. TECHNIQUE: Computed tomography of the abdomen and pelvis was performed after the intravenous administration of Isovue-370. COMPARISON: 11/03/2018. FINDINGS: Lung windows through the visualized portions of the bases reveal mild atelectasis. Bone windows reveal no suspicious lesions. There is a 4 mm calculus in the left renal interpolar region. The right kidney, adrenal glands, pancreas, spleen, gallbladder and liver are unremarkable. There are no pathologically enlarged lymph nodes. Stool throughout the colon is consistent with mild constipation. The appendix is not inflamed. There is no small bowel obstruction. The bladder is partially decompressed but there is mild wall thickening. IMPRESSION: 1. Mild bladder wall thickening. Correlate with urinalysis. 2. 4 mm left renal calculus. 3. Findings consistent with mild constipation. [] (AFUA KENYON APRN) Course & Med Decision Making Course & Med Decision Making Pertinent Labs and Imaging studies reviewed. (See chart for details) [] (AFUA KENYON APRN) Dragon Disclaimer Dragon Disclaimer This electronic medical record was generated, in whole or in part, using a voice recognition dictation system. (AFUA KENYON APRN) Departure Departure Impression: Primary Impression: Constipation Additional Impression: Abdominal pain Disposition: 01 HOME, SELF-CARE Condition: STABLE Referrals: UNKNOWN PCP NAME (PCP) Patient Instructions: Constipation, Adult, [id number] Additional Instructions: Take 1 capful of Miralax (or generic Miralax) twice daily in 8 oz of water or apple juice until your bowel movements are normal, then take 1 capful of Miralax daily. Follow up with your primary care doctor if symptoms persist, return to the ER if symptoms worsen. Attending Signature Attending Signature I have reviewed the PA/SCRAP COLLECTOR's note and plan of care. I was available for consultation as needed during the patient's visit in the emergency department. I agree with the clinical impression, plan, and disposition. (WAYNE RAI DO) Problem Qualifiers Primary Impression: Constipation Constipation type: unspecified constipation type Qualified Codes: K59.00 - Constipation, unspecified Additional Impression: Abdominal pain Abdominal location: generalized Qualified Codes: R10.84 - Generalized abdominal pain AFUA KENYON APRN Apr 12, 2019 00:24 WAYNE RAI DO Apr 15, 2019 15:56
--- NOTE | 2019-04-12 00:49 | RAD ---
EXAM: CT ABDOMEN/PELVIS WITH CONTRAST. HISTORY: Abdominal pain. Constipation. TECHNIQUE: Computed tomography of the abdomen and pelvis was performed after the intravenous administration of Isovue-370. COMPARISON: 11/03/2018. FINDINGS: Lung windows through the visualized portions of the bases reveal mild atelectasis. Bone windows reveal no suspicious lesions. There is a 4 mm calculus in the left renal interpolar region. The right kidney, adrenal glands, pancreas, spleen, gallbladder and liver are unremarkable. There are no pathologically enlarged lymph nodes. Stool throughout the colon is consistent with mild constipation. The appendix is not inflamed. There is no small bowel obstruction. The bladder is partially decompressed but there is mild wall thickening. IMPRESSION: 1. Mild bladder wall thickening. Correlate with urinalysis. 2. 4 mm left renal calculus. 3. Findings consistent with mild constipation. *One or more of the following individualized dose reduction techniques were utilized for this examination: 1. Automated exposure control. 2. Adjustment of the mA and/or kV according to patient size. 3. Use of iterative reconstruction technique. Electronically signed by: William Guerrero MD (04/12/2019 12:46 AM) [facility]
== END 2019-04-12 01:45 | disposition home or self-care (01) ==
LOC: ER 21:35
DX: K59.00 Constipation, unspecified (principal); N20.0 Calculus of kidney; G89.29 Other chronic pain; F17.210 Nicotine dependence, cigarettes, uncomplicated
CPT/HCPCS: 36415; 74177; 80053; 81001; 85025; 99285; J7030; Q9967

== ENCOUNTER 2019-09-05 00:06 | Emergency (ER) | payer MEDICAID ==
[~2019-09-05] VITALS: Ht 170.2 cm; Wt 69.4 kg
[2019-09-05] MEDS ORDERED: guaiFENesin DM 200MG/20MG 10 ML SYRUP PO PRN (00:15)
[2019-09-05 00:18] VITALS: BP 156/111
--- NOTE | 2019-09-05 00:20 | PHYS DOC ---
Past Medical History Past Medical History: Depression Additional Past Medical Histor: chronic hip and knee pain, SEASONAL ALLERGIES (LAURA WEI) Past Surgical History: Other Additional Past Surgical Histo: Left labrum tear repair (LAURA WEI) Alcohol Use: None Drug Use: None (LAURA WEI) Attending Signature I have participated in the care of this patient and I have reviewed and agree with all pertinent clinical information above including history, exam, and recommendations. (ELIER CATALAN MD) Adult General Chief Complaint Chief Complaint: COUGH HPI HPI Patient is a 39 year old M with 3 days of cough, congestion and fever. (LAURA WEI) Review of Systems Review of Systems Constitutional: Reports fever HENT: Reports nasal congestion and mild sore throat Respiratory: Reports cough Cardiovascular: Denies chest pain GI: Denies abdominal pain, nausea, vomiting, bloody stools or diarrhea [] Musculoskeletal: Denies back pain or joint pain [] Integument: Denies rash or skin lesions [] Neurologic: Denies headache, focal weakness or sensory changes [] All other systems were reviewed and found to be within normal limits, except as documented in this note. (LAURA WEI) Current Medications Current Medications Current Medications Medications (Trade) Dose Ordered Sig/Willy Start Time Stop Time Status Last Admin Dose Admin Acetaminophen (Tylenol) 650 mg 1X ONCE 09/05/19 00:30 09/05/19 00:31 DC 09/05/19 00:26 650 MG Guaifenesin (Robitussin Dm) 10 ml PRN Q6HRS PRN 09/05/19 00:15 09/05/19 01:00 DC 09/05/19 00:29 10 ML (ELIER CATALAN MD) Allergies Allergies Allergies Coded Allergies Type Severity Reaction Last Updated Verified No Known Drug Allergies 08/18/15 No (ELIER CATALAN MD) Physical Exam Physical Exam Constitutional: Well developed, well nourished, no acute distress, non-toxic appearance. Appears uncomfortable, ill but nontoxic. HENT: Normocephalic, atraumatic, bilateral external ears normal, oropharynx moist, no oral exudates, nose normal. Mild pharyngeal erythema Neck: Normal range of motion, no tenderness, supple, no stridor. [] Cardiovascular: tachycardic, no murmur [] Lungs & Thorax: Bilateral breath sounds clear to auscultation . Hard cough noted. Abdomen: Bowel sounds normal, soft, no tenderness, no masses, no pulsatile masses. [] Skin: Warm, dry, no erythema, no rash. [] Back: No tenderness, no CVA tenderness. [] Extremities: No tenderness, no cyanosis, no clubbing, ROM intact, no edema. [] Neurologic: Alert and oriented X 3, normal motor function, normal sensory function, no focal deficits noted. [] Psychologic: Affect normal, judgement normal, mood normal. [] (LAURA WEI) Current Patient Data Vital Signs Vital Signs Date Time Temp Pulse Resp B/P (MAP) Pulse Ox O2 Delivery O2 Flow Rate FiO2 09/05/19 00:18 101.7 91 16 156/111 (126) 97 Room Air 101.7 (ELIER CATALAN MD) Lab Values Laboratory Tests Test 09/05/19 00:15 Influenza Type A Antigen Negative (NEGATIVE) Influenza Type B Antigen Positive (NEGATIVE) (ELIER CATALAN MD) Lab Values Laboratory Tests Test 09/05/19 00:15 Influenza Type A Antigen Negative (NEGATIVE) Influenza Type B Antigen Positive (NEGATIVE) (LAURA WEI) EKG EKG [] (LAURA WEI) Radiology/Procedures Radiology/Procedures [] (LAURA WEI) Course & Med Decision Making Course & Med Decision Making Pertinent Labs and Imaging studies reviewed. (See chart for details) Pt with positive influenza B. Will treat for symptoms and recommend fever control and pushing fluids. Pt to return with any worsening symptoms. (LAURA WEI) Dragon Disclaimer Dragon Disclaimer This electronic medical record was generated, in whole or in part, using a voice recognition dictation system. (LAURA WEI) Departure Departure Impression: Primary Impression: Influenza B Disposition: 01 HOME, SELF-CARE Condition: IMPROVED Referrals: UNKNOWN PCP NAME (PCP) Patient Instructions: Influenza A (H1N1) Additional Instructions: Alternate tylenol and ibuprofen for fever control. Push fluids. F/u with PCP and return with any worsening symptoms. Scripts Benzonatate (TESSALON PERLE) 100 Mg Capsule 100 MG PO TID PRN for COUGH, #15 CAP Prov: LAURA WEI 09/05/19 Guaifenesin/Codeine Phosphate (Codeine-Guaifen 10-100 mg/5 ml) 120 Ml Liquid 10 ML PO PRN Q4HRS PRN for cough and congestion MDD 60 Milliliter(s) for 4 Days, #200 ML 0 Refills Prov: LAURA WEI 09/05/19 LAURA WEI Sep 05, 2019 00:20 ELIER CATALAN MD Sep 06, 2019 07:26
[2019-09-05] MEDS ORDERED: ACETAMINOPHEN 325 MG TABLET. PO ONE (00:30)
[2019-09-05 00:40] LABS: INFLUENZA A PATIENT NEGATIVE (NEGATIVE)
[2019-09-05 00:41] LABS: INFLUENZA B PATIENT POSITIVE (NEGATIVE)
[2019-09-05] MEDS ORDERED: BENZ100C PO (00:48)
[2019-09-05] MEDS ORDERED: GUAI120L35 PO (00:48)
== END 2019-09-05 00:52 | disposition home or self-care (01) ==
LOC: ER 00:06
DX: J10.1 Influenza due to other identified influenza virus with other respiratory manifestations (principal)
CPT/HCPCS: 87804; 99284

== ENCOUNTER 2020-01-10 03:54 | Emergency (ER) | payer MEDICARE, MEDICAID ==
[~2020-01-10 03:54] MED LIST changes: +BENZ100C PO; +GUAI120L35 PO
== END 2020-01-10 04:05 | disposition left against medical advice (07) ==
LOC: ER 03:54
DX: R06.02 Shortness of breath (principal); R51 Headache; R42 Dizziness and giddiness; Z87.891 Personal history of nicotine dependence; Z53.21 Procedure and treatment not carried out due to patient leaving prior to being seen by health care provider

== ENCOUNTER 2020-04-09 23:49 | Emergency (ER) | payer MEDICARE, MEDICAID ==
[~2020-04-09] VITALS: Ht 170.2 cm; Wt 71.8 kg
--- NOTE | 2020-04-10 00:31 | PHYS DOC ---
Past Medical History Past Medical History: Depression Additional Past Medical Histor: chronic hip and knee pain, SEASONAL ALLERGIES Past Surgical History: Other Additional Past Surgical Histo: Left labrum tear repair Smoking Status: Former Smoker Alcohol Use: None Drug Use: None General Adult EDM: Chief Complaint: SHORTNESS OF BREATH HPI: HPI: Patient is a 39 year old male who presents with vague complaints of shortness of breath, presyncope, abdominal pain and bloating and a change in exercise tolerance. Patient is apparently is been to multiple hospitals with previous work-ups and same complaints and has been told that they could find nothing to explain his symptoms. Today the patient does complain of anxiety and during the interview was noted to actively hyperventilate. Although he denied a sense of doom at times he said he feels really anxious when these things happen. He reports that he feels like he is got a pass out although he never has, associated with chest pain and shortness of breath, dizziness, nausea, stomach discomfort described as a burning sensation radiating up into the chest that is intermittent and waxes and wanes. Review of Systems: Review of Systems: Constitutional: Denies fever or chills. [] Eyes: Denies change in visual acuity. [] HENT: Denies nasal congestion or sore throat, complains of globus. [] Respiratory: See HPI. [] Cardiovascular: See HPI [] GI: See HPI, denies melena or hematochezia. [] : Denies dysuria. [] Musculoskeletal: Denies back pain or joint pain. [] Integument: Denies rash. [] Neurologic: Denies headache, focal weakness or sensory changes. [] Endocrine: Denies polyuria or polydipsia. [] Lymphatic: Denies swollen glands. [] Psychiatric: Denies depression or anxiety. [] Heart Score: Risk Factors: Risk Factors: DM, Current or recent (<one month) smoker, HTN, HLP, family history of CAD, obesity. Risk Scores: Score 0 - 3: 2.5% MACE over next 6 weeks - Discharge Home Score 4 - 6: 20.3% MACE over next 6 weeks - Admit for Clinical Observation Score 7 - 10: 72.7% MACE over next 6 weeks - Early Invasive Strategies Allergies: Allergies: Allergies Coded Allergies Type Severity Reaction Last Updated Verified No Known Drug Allergies 12/15/15 No Physical Exam: PE: Constitutional: Well developed, well nourished, no acute distress, non-toxic appearance. [] HENT: Normocephalic, atraumatic, bilateral external ears normal, oropharynx moist, no oral exudates, nose normal. [] Eyes: PERRLA, EOMI, conjunctiva normal, no discharge. [] Neck: Normal range of motion, no tenderness, supple, no stridor. [] Cardiovascular:Heart rate regular rhythm, no murmur [] Lungs & Thorax: Bilateral breath sounds clear to auscultation [] Abdomen: Bowel sounds normal, soft, no tenderness, no masses, no pulsatile masses. [] Skin: Warm, dry, no erythema, no rash. [] Back: No tenderness, no CVA tenderness. [] Extremities: No tenderness, no cyanosis, no clubbing, ROM intact, no edema. [] Neurologic: Alert and oriented X 3, normal motor function, normal sensory function, no focal deficits noted. [] Psychologic: Affect anxious, judgement normal, mood anxious. [] EKG: EKG: Heart rate 63 bpm , normal sinus rhythm, normal axis, normal intervals, normal ECG [] Radiology/Procedures: Radiology/Procedures: Chest x-ray was interpreted by me. No acute intra-thoracic or cardiopulmonary process is identified. [] Course & Med Decision Making: Course & Med Decision Making Pertinent Labs and Imaging studies reviewed. (See chart for details) 0149-the patient was seen and reevaluated. Patient received clonidine for anxiety and reports that it made him feel a lot better. However he continues to have abdominal pain and bloating and complains of constipation and difficulty with eructations. However this is not a new problem and at this time he has a benign exam and a benign work-up. Further testing is not thought to be of any benefit. I encouraged him to follow-up with his primary care physician. I discussed reasons to return, treatment plan and need for follow-up. [] Dragon Disclaimer: Geovanna Disclaimer: This electronic medical record was generated, in whole or in part, using a voice recognition dictation system. Departure Departure Impression: Primary Impression: Non-cardiac chest pain Additional Impressions: GUILLERMO (generalized anxiety disorder) Panic attack Chronic abdominal pain Disposition: HOME, SELF-CARE Condition: IMPROVED Referrals: UNKNOWN PCP NAME (PCP) Scripts Clonidine Hcl (CLONIDINE HCL) 0.1 Mg Tablet 0.1 MG PO BID PRN for ANXIETY, #10 TAB Prov: ANKIT PINEDO MD 04/10/20 Justicifation of Admission Dx: Justifications for Admission: Justification of Admission Dx: N/A ANKIT PINEDO MD Apr 10, 2020 00:31
[2020-04-10 00:42] LABS: BASO # 0.1 x10^3/uL (0.0-0.2); BASO % 1 % (0-3); EOS # 0.2 x10^3/uL (0.0-0.7); EOS % 3 % (0-3); HEMATOCRIT 45.4 % (39.0-53.0); HEMOGLOBIN 16.1 g/dL (13.0-17.5); LYMPH # 2.7 x10^3/uL (1.0-4.8); LYMPH % 40 % (24-48); MEAN CORPUSCULAR HEMOGLOBIN 29 pg (25-35); MEAN CORPUSCULAR HGB CONC 36 g/dL (31-37); MEAN CORPUSCULAR VOLUME 82 fL (79-100); MONO # 0.5 x10^3/uL (0.0-1.1); MONO % 7 % (0-9); NEUT # 3.3 x10^3/uL (1.8-7.7); NEUT % 48 % (31-73); PLATELET COUNT 235 x10^3/uL (140-400); RED BLOOD COUNT 5.55 x10^6/uL (4.30-5.70); WHITE BLOOD COUNT 6.8 x10^3/uL (4.0-11.0)
[2020-04-10] MEDS ORDERED: cloNIDine HCL 0.1 MG TABLET PO ONE (00:45)
[2020-04-10] MEDS ORDERED: FAMOTIDINE 20 MG TABLET. PO ONE (00:45)
[2020-04-10] MEDS ORDERED: ONDANSETRON ODT 4 MG TAB.RAPDIS. PO ONE (00:45)
[2020-04-10] MEDS ORDERED: MAG HYDROX/ALUMINUM HYD/SIMETH 30 ML ORAL.SUSP PO ONE (00:45)
[2020-04-10 00:51] LABS: CALCIUM 9.3 mg/dL (8.5-10.1); CREATININE 1.1 mg/dL (0.7-1.3); GFR 75.3; POTASSIUM 4.4 mmol/L (3.5-5.1)
[2020-04-10 00:57] LABS: ALBUMIN/GLOBULIN RATIO 1.1 (1.0-1.7); TOTAL BILIRUBIN 0.7 mg/dL (0.2-1.0); TOTAL PROTEIN 7.7 g/dL (6.4-8.2)
[2020-04-10] MEDS ORDERED: CLON0.1T PO (01:52)
[2020-04-10 02:04] VITALS: BP 116/69
--- NOTE | 2020-04-10 02:24 | RAD ---
INDICATION: Reason: SOB / Spl. Instructions: / History: COMPARISON: November 2018 FINDINGS: 2 view of chest obtained. Cardiac silhouette is unremarkable. No focal airspace consolidation or pulmonary edema. IMPRESSION: * No focal airspace consolidation or edema. Electronically signed by: Jose Lantigua MD (04/10/2020 2:21 AM) [id number]
--- NOTE | 2020-04-10 10:03 | EKG ---
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
== END 2020-04-10 02:10 | disposition home or self-care (01) ==
LOC: ER 23:49
DX: R07.89 Other chest pain (principal); F41.1 Generalized anxiety disorder; F41.0 Panic disorder [episodic paroxysmal anxiety]; G89.29 Other chronic pain; R10.9 Unspecified abdominal pain; Z87.891 Personal history of nicotine dependence
CPT/HCPCS: 36415; 71046; 80053; 83690; 84484; 85025; 93005; 99285-25